=== PATIENT | male | born 1990 | race Caucasian/White ===

== ENCOUNTER 2017-06-17 00:21 | Day surgery (SDC) | payer OTHER ==
[~2017-06-17] VITALS: Ht 182.9 cm; Wt 57.6 kg
[~2017-06-17 00:21] MED LIST: HYDR-389 PO; LEVO-85 PO
[2017-06-17 11:44] VITALS: BP 111/96
[2017-06-17] MEDS ORDERED: FAMOTIDINE(*) 20MG/50ML PREMIX 50 ML IVPB ONE (12:01)
[2017-06-17] MEDS ORDERED: FAMOTIDINE 20 MG TAB PO ONE (12:20)
[2017-06-17] MEDS ORDERED: NORMOSOL R SOLN(*) 1000 ML BAG 1,000 ML IV PRN (12:20)
[2017-06-17] MEDS ORDERED: GENTAMICIN(*) 80 MG/2 ML VIAL 160 MG in NS(*) 0.9% 100 ML BAG 100 ML IVPB ONE (12:20)
[2017-06-17] MEDS ORDERED: MIDAZOLAM 2 MG/2 ML VIAL IVP PRN (12:20)
[2017-06-17] MEDS ORDERED: LIDOCAINE/SOD BICARB 8.4% SYR ID ONE (12:20)
[2017-06-17] MEDS ORDERED: cefTRIAXone(*) 1 GM VIAL 1 GM in NS(*) 0.9% 100 ML ADDVANT BAG 100 ML IVPB ONE (12:20)
[2017-06-17] MEDS ORDERED: PROPOFOL EMUL(*) 10MG/ML 20 ML 20 ML ONE (12:26)
[2017-06-17] MEDS ORDERED: DEXAMETHASONE SOD 4 MG/ML VIAL ONE (12:26)
[2017-06-17] MEDS ORDERED: LIDOCAINE MPF 1% 5 ML VIAL ONE (12:26)
[2017-06-17] MEDS ORDERED: METOCLOPRAMIDE 10 MG/2 ML SDV ONE (12:26)
[2017-06-17] MEDS ORDERED: ONDANSETRON 4 MG/2 ML VIAL ONE (12:26)
[2017-06-17] MEDS ORDERED: fentaNYL CITR 100 MCG/2 ML AMP ONE ×2 (12:28→15:04)
[2017-06-17] MEDS ORDERED: IOPAMIDOL-200 50 ML VIAL IS ONE (14:16)
--- NOTE | 2017-06-17 14:55 | RADIOLOGY IMAGING REPORT ---
FACILITY: [facility] PATIENT NAME: Jarrod Teague : 1990 MR: [id number] V: [id number] EXAM DATE: ORDERING PHYSICIAN: MATEO STEEN TECHNOLOGIST: [place] [facility] [place] Jarrod Te[place] : 1990 Visit/Account:[id number] Date of Sevice: 06/17/2017 Exam type: C-ARM FLUORO 1 HR History: SEMINAL VESSICLE X-RAY Comparison: CT abdomen pelvis June 07, 2017 Findings: There is a collection of contrast seen along the inferior right side of the lower pelvis extending to wards midline inferiorly adjacent to metallic probe. This apparently represents the large cyst seen in the right seminal vesicle extending into the prostate on the recent CT scan. Is a small serpigino us collection of contrast projecting to the left of midline as well. The final image #4 demonstrates drainage of most of the contrast. Four intraoperative spot views over the pelvis were submitted for interpretation. The total prostate be time was 0.05 minutes. The fluoroscopy dose was 2.5 mg. IMPRESSION: 1. As above Report Dictated By: Estefany Chow MD at 06/17/2017 2:49 PM Report E-Signed By: Estefany Chow MD at 06/17/2017 2:51 PM WSN:[email or web address]
[2017-06-17] MEDS ORDERED: CIPR-344 PO (15:26)
[2017-06-17] MEDS ORDERED: FAMO20TA28 PO (15:27)
[2017-06-17] MEDS ORDERED: IBUP800T37 PO (15:28)
[2017-06-17] MEDS ORDERED: HYDR-389 PO (15:29)
[2017-06-17 15:40] VITALS: BP 118/82
[2017-06-17 15:43] VITALS: BP 120/93
[2017-06-17] MEDS ORDERED: APAP/HYDROCODONE 325/7.5 TAB ONE (15:52)
--- NOTE | 2017-06-17 16:16 | RADIOLOGY IMAGING REPORT ---
FACILITY: [facility] [place] PATIENT NAME: Jarrod Teague : 1990 MR: [id number] V: [id number] EXAM DATE: ORDERING PHYSICIAN: MATEO STEEN TECHNOLOGIST: Location: [facility] Patient: Jarrod Teague : 1990 Visit/Account:[id number] Date of Sevice: 06/17/2017 Exam type: PROSTATE History: SEMINAL VESSICAL ENLARGMENT Comparison: CT abdomen pelvis June 15, 2017. Findings: Sonographic assistance was provided to Dr. Steen in the OR for injection of the cystic cavity in the prostate gland and right seminal vesicle. Please see Dr. Steen's report for complete details IMPRESSION: 1. As above Report Dictated By: Estefany Chow MD at 06/17/2017 4:10 PM Report E-Signed By: Estefany Chow MD at 06/17/2017 4:11 PM WSN:[email or web address]
--- NOTE | 2017-06-19 00:05 | OPERATIVE REPORT 1 ---
EVENT DATE: June 17, 2017 SURGEON: Milad Chapman MD ANESTHESIOLOGIST: Johnny Ernst MD ANESTHESIA: General PREOPERATIVE DIAGNOSIS Large and dilated right seminal vesicle, probably obstructed. POSTOPERATIVE DIAGNOSES 1. Large and dilated right seminal vesicle, probably obstructed. 2. Hemorrhage of the right dilated seminal vesicle. PROCEDURES PERFORMED 1. Prostate ultrasound. 2. Cystourethroscopy. 3. Puncture of dilated right seminal vesicle in the proximal verumontanum area on the right. Multiple pictures pre-puncture and post-puncture. 4. Collection of hemorrhagic seminal vesicle fluid for anaerobic and aerobic cultures, Gram stain, wet mount, and cytologies. 5. Right seminal vesicle x-rays. 6. Drainage of large obstructed right seminal vesicle. DESCRIPTION OF PROCEDURE Under general anesthetic, the patient was prepped and draped in the extended lithotomy position. The prostate ultrasound was performed. The large, dilated seminal vesicle on the right was identified and was pushing the prostate and bladder to the left. The seminal vesicle extended down to the probable verumontanum area. I was unable to express any fluid out the verumontanum. The bladder showed 2 to 3+ trabeculation. Left ureteral orifice was normal and the left hemitrigone. The cystic or dilated seminal vesicle extended almost to the proximal base of the bladder on the right. A pediatric 3-Thai ureteral catheter was used as a probe to access the right seminal vessel of the apulla of the vas-deferans via verumontanum. I was unable to access the right seminal and the vas-deferans via the veruontanum. I used a 3-Thai pediatric ureteral catheter to puncture the dilated seminal vesicle cephalad to the veruontanum. Bloody fluid was noted, dark in color. Approximately 12 mL of the seminal fluid was sent for anaerobic and aerobic cultures, Gram stain, wet mount, and cytology studies. Seminal vesiculograms showed the dilated right seminal vesicle. Approximately 30 to 40 mL of dark bloody seminal vesicle fluid was drained, from the right seminal vesicle. Palpating the prostate, I was unable to push any fluid out the puncture sites, made just at a cephalad to the verumontanum on the right. Multiple photos were obtained pre and post drainage. Multiple x-rays of the right seminal vesicle were obtained. The patient tolerated the procedure satisfactorily and returned to the recovery room in satisfactory condition. This is a 19-year-old white male complaining of severe retroscrotal pain. The patient has painful ejaculations. CT IVP shows a large, dilated right seminal vesicle that displaced the prostate and bladder to the left. Options were explained to the patient and his pretreatment. He is agreeable to further evaluation and therapy. See operative note for details. If the lesion needs to be incised and drained, that can be accomplished hopefully with minimal difficulty. PLAN We will follow up with the patient to ascertain his satisfaction as to relief of the pain that he has been having of late. Follow up in the office this coming Wednesday to check the studies. Activities are as tolerated. He is to continue his usual medications. He will be discharged on Cipro, Pepcid, Motrin, and [place] therapy. MTDD
== END 2017-06-17 15:40 | disposition home or self-care (01) ==
LOC: OR 00:21
DX: N50.1 Vascular disorders of male genital organs (principal)
CPT/HCPCS: 55899; 76000; 76872; 87071; 87073; 87205; C1758; C2617; J0696; J1100; J1580; J2001; J2405; J2704; J2765; J3010; J3490; J7050; Q9966